=== PATIENT | male | born 1945 | race Caucasian/White ===

== ENCOUNTER 2024-01-19 05:52 | Day surgery (SDC) | payer MEDICARE, OTHER ==
[2024-01-18 11:55] LABS: BASOPHILS % (AUTO) 0.5 % (0-1); EOSINOPHILS # (AUTO) 0.4 X10'3 (0-0.9); EOSINOPHILS % (AUTO) 5.5 % (0-6); HEMATOCRIT 40.7 % (42.0-52.0); HEMOGLOBIN 13.7 g/dl (14.0-17.9); LYMPHOCYTES # (AUTO) 1.5 X10'3 (1.1-4.8); LYMPHOCYTES % (AUTO) 23.2 % (21-51); MEAN CORPUSCULAR HEMOGLOBIN 30.4 PG (27.0-31.0); MEAN CORPUSCULAR HGB CONC 33.7 g/dL (33.0-36.5); MEAN CORPUSCULAR VOLUME 90.2 FL (78-98); MEAN PLATELET VOLUME 8.7 FL (7.4-10.4); MONOCYTES # (AUTO) 0.7 X10'3 (0-0.9); MONOCYTES % (AUTO) 10.7 % (2-12); NEUTROPHILS # (AUTO) 3.9 X10'3 (1.8-7.7); NEUTROPHILS % (AUTO) 60.1 % (42-75); PLATELET COUNT 176 X10'3 (140-440); RED BLOOD COUNT 4.51 X10'6 (4.70-6.10); RED CELL DISTRIBUTION WIDTH 14.1 % (11.5-14.5); WHITE BLOOD COUNT 6.5 X10'3 (4.5-11.0)
[2024-01-18 12:08] LABS: APTT 29 SECONDS (22-32); INR 1.1 INR; PROTHROMBIN TIME 11.1 SECONDS (9.0-12.0)
[2024-01-18 12:17] LABS: ALBUMIN 3.5 G/DL (3.4-5.0); ANION GAP 8 (8-16); BLOOD UREA NITROGEN 25 MG/DL (7-18); CALCIUM 9.2 MG/DL (8.5-10.1); CHLORIDE 105 MMOL/L (99-107); CREATININE 1.19 MG/DL (0.60-1.10); GLUCOSE 94 MG/DL (70-104); POTASSIUM 3.9 MMOL/L (3.5-5.1); SODIUM 141 MMOL/L (135-145); TOTAL CARBON DIOXIDE 28.5 MMOL/L (24-32); eGFR 59 ML/MIN
[2024-01-19] VITALS (12 sets, daily range): BP systolic 109–169; BP diastolic 50–91; PULSE 47–53; RESP 14–21; TEMP 97.8; O2SAT 96–100
[~2024-01-19] VITALS: Ht 165.1 cm; Wt 90.5 kg
[2024-01-19] MEDS ORDERED: ASPI81TA52 PO (06:18)
[2024-01-19] MEDS ORDERED: HYDR25TA5 PO (06:18)
[2024-01-19] MEDS ORDERED: ATOR-2 PO (06:18)
[2024-01-19] MEDS ORDERED: SODI10PO PO (06:18)
[2024-01-19] MEDS ORDERED: METO25TA6 PO (06:18)
[2024-01-19] MEDS ORDERED: MULT-1249 PO (06:18)
[2024-01-19] MEDS ORDERED: APIX2.5T PO (06:18)
[2024-01-19] MEDS ORDERED: LIDOcaine 1% (10mg/ml) 2ml vial ONE ×2 (07:25→08:27)
[2024-01-19] MEDS ORDERED: midazolam 1 mg/ML 2ml injection ONE (07:25)
[2024-01-19] MEDS ORDERED: verapamil 2.5 mg/ml inj IV ONE (07:25)
[2024-01-19] MEDS ORDERED: fentaNYL/PF 50MCG/1 ML 2ML syringe ONE (07:25)
[2024-01-19] MEDS ORDERED: heparin 1,000unit/ml 10ml vial 10 ML ONE (07:26)
[2024-01-19] MEDS ORDERED: iohexol 350 MG/ML 50ML vial IV ONE ×2 (07:26→08:56)
[2024-01-19] MEDS ORDERED: iohexol 350MG/ML 100ml bottle IV ONE (07:26)
[2024-01-19] MEDS ORDERED: nitroGLYCERIN 500mcg/5mL D5W 5 ML IV ONE (07:26)
[2024-01-19] MEDS: normal saline 1,000 ML IV SCH (07:28)
[2024-01-19] MEDS: diphenhydrAMINE 25mg capsule PO PRN (07:28)
[2024-01-19] MEDS: LORazepam 0.5 MG tablet PO PRN (07:28)
[2024-01-19] MEDS ORDERED: NITR0.4T51 SL (07:41)
[2024-01-19] MEDS ORDERED: ALBU18HF2 INH (07:41)
[2024-01-19 09:15] LABS: ISTAT HGB ART 11.6 g/dl (14.0-17.9); ISTAT Hct ART 34 %PCV (42-52); ISTAT O2 SATURATION ARTERIAL 97 % (95-98); ISTAT SOURCE ART
[2024-01-19 09:23] LABS: ISTAT HGB MIX 11.6 g/dl (14.0-17.9); ISTAT Hct MIX 34 %PCV (42-52); ISTAT O2 SATURATION MIX VENOUS 66 % (60-80); ISTAT SOURCE VEN
== END 2024-01-19 14:50 | disposition home or self-care (01) ==
LOC: SSTAY O 05:52
PROVIDERS: ATTEND Internal Medicine Cardiovascular Disease
DX: R94.39 Abnormal result of other cardiovascular function study (principal); I25.10 Atherosclerotic heart disease of native coronary artery without angina pectoris; I45.10 Unspecified right bundle-branch block; I10 Essential (primary) hypertension; E78.5 Hyperlipidemia, unspecified; I48.0 Paroxysmal atrial fibrillation; E66.9 Obesity, unspecified; G47.30 Sleep apnea, unspecified; Z79.01 Long term (current) use of anticoagulants; Z79.82 Long term (current) use of aspirin; Z79.899 Other long term (current) drug therapy; Z95.1 Presence of aortocoronary bypass graft; Z95.5 Presence of coronary angioplasty implant and graft; Z90.49 Acquired absence of other specified parts of digestive tract; Z98.41 Cataract extraction status, right eye; Z98.42 Cataract extraction status, left eye; Z98.890 Other specified postprocedural states; Z68.33 Body mass index [BMI] 33.0-33.9, adult; Z88.0 Allergy status to penicillin; Z82.49 Family history of ischemic heart disease and other diseases of the circulatory system
CPT/HCPCS: 36415; 76937; 80048; 82803; 85014; 85025; 85610; 85730; 93005; 93461; 99152; 99153; J1644; J2250; J3010; J3490; J7030; Q0163; Q9967; A6258; C1725; C1751; C1894